=== PATIENT | female | born 1990 | race Caucasian/White ===

== ENCOUNTER 2020-10-25 17:06 | Emergency (ER) | payer MEDICAID ==
[~2020-10-25] VITALS: Ht 160 cm; Wt 59.0 kg
[2020-10-25 17:23] VITALS: BP 147/98
[2020-10-25] MEDS ORDERED: CEPH500T MT (20:12)
[2020-10-25] MEDS ORDERED: CEPHALEXIN 250MG CAPSULE PO ONE (20:15)
== END 2020-10-25 20:40 | disposition home or self-care (01) ==
LOC: ER 17:24
DX: L03.116 Cellulitis of left lower limb (principal); R03.0 Elevated blood-pressure reading, without diagnosis of hypertension; Z87.828 Personal history of other (healed) physical injury and trauma
CPT/HCPCS: 99283